=== PATIENT | male | born 1935 | race American Indian/Alaskan Native ===

== ENCOUNTER 2018-05-06 14:09 | Emergency (ER) | payer OTHER ==
[~2018-05-06] VITALS: Ht 170.2 cm; Wt 61.2 kg
[2018-05-06] MEDS ORDERED: NORVASC5 MG (14:17)
[2018-05-06] MEDS ORDERED: TENORMIN50 M1 (14:17)
[2018-05-06] MEDS ORDERED: COZAAR25 MG (14:17)
[2018-05-06] MEDS ORDERED: CILOSTAZOL100 MG (14:18)
[2018-05-06] MEDS ORDERED: ZOCOR5 MG (14:20)
[2018-05-06] MEDS ORDERED: ARICEPT10 MG (14:20)
[2018-05-06] MEDS ORDERED: NEURONTIN800 MG (14:20)
== END 2018-05-07 17:41 | disposition home or self-care (01) ==
LOC: ER 14:09
DX: K92.1 Melena (principal); K74.69 Other cirrhosis of liver; R16.0 Hepatomegaly, not elsewhere classified